=== PATIENT | female | born 1965 | race American Indian/Alaskan Native ===

== ENCOUNTER 2017-05-29 19:58 | Emergency (ER) | payer OTHER ==
[2017-05-29 20:05] VITALS: BP 143/89; PULSE 79; RESP 16; TEMP 97.6; O2SAT 100
--- NOTE | 2017-05-29 21:06 | ED PDOC ---
HPI: CCC, URI, Sore Throat Time Seen by Provider: 05/29/17 20:11 Chief Complaint (Nursing): ENT Problem Chief Complaint (Provider): LEFT ear pain History Per: Patient History/Exam Limitations: no limitations Have you had recent travel within the past 21 days to any of the following countries: [place], [place], [place] or [place]?: No Onset/Duration Of Symptoms: Days Current Symptoms Are (Timing): Still Present Location Of Pain: Ear(s) (left) Sick Contacts (Context): None Ear Symptoms: Left: Ear Pain (3 weeks) Additional History Per: Patient Additional Complaint(s): The patient is a 51yo female, past medical history of hypertension, DM, presents to the ED for evaluation of left ear pain present for the past 3 weeks. Patient states she feels as if there is swelling and decreased hearing in her left ear. Patient states she used an OTC ear wash initially with no relief and then followed up with her PCP Dr. Gilliam at [facility] in [place] who gave her an antibiotics ear drop which provided relief. Patient states she finished her antibiotics course 3 days ago after which her symptoms have returned and are more worse than before. She also reports new nasal and sinus congestion. She denies any fever or drainage. Patient offers no additional medical complaints. Past Medical History Reviewed: Historical Data, Nursing Documentation, Vital Signs Vital Signs: Last Vital Signs Temp 97.6 F 05/29/17 20:02 Pulse 79 05/29/17 20:02 Resp 16 05/29/17 20:02 BP 143/89 05/29/17 20:02 Pulse Ox 100 05/29/17 22:15 - Medical History PMH: Asthma, Diabetes, HTN - Surgical History Surgical History: Tonsillectomy - Family History Family History: States: Hypertension - Social History Current smoker - smoking cessation education provided: Yes (cigars occaisonally) Alcohol: None Drugs: Denies - Home Medications Home Medications: Ambulatory Orders Medication Instructions Recorded Enalapril Maleate [Enalapril] 5 mg PO DAILY #30 tab 09/07/14 GlipiZIDE SR [Glucotrol XL] 5 mg PO DAILY #30 tab 09/07/14 MetFORMIN [glucoPHAGE] 1,000 mg PO BID #60 tab 09/07/14 Naproxen [Naprosyn] 500 mg PO Q12 PRN #20 tab 09/07/14 Pravastatin Sodium [Pravastatin] 20 mg PO DAILY #30 tab 09/07/14 Amoxicillin/Clavulanate [Augmentin 1 tab PO BID #14 tab 05/29/17 875 MG-125 MG] Ciprofloxacin/Hydrocortisone 10 ml OS QID #1 bottle 05/29/17 [Cipro Hc Otic Suspension] Naproxen [Naprosyn] 1 tab PO BID PRN #60 tab 05/29/17 - Allergies Allergies/Adverse Reactions: Allergies Allergy/AdvReac Type Severity Reaction Status Date / Time No Known Allergies Allergy Unverified 09/07/14 11:51 Review of Systems ROS Statement: Except As Marked, All Systems Reviewed And Found Negative ENT: Positive for: Ear Pain (left ear pain, left ear swelling), Other ( decreased hearing left ear) Physical Exam - Reviewed Nursing Documentation Reviewed: Yes Vital Signs Reviewed: Yes - Physical Exam Appears: Positive for: Well, Non-toxic Head Exam: Positive for: ATRAUMATIC, NORMOCEPHALIC Skin: Positive for: Warm, Dry Eye Exam: Positive for: EOMI, PERRL ENT: Positive for: Nasal Congestion, Other (LEFT ear: Moderate edema with redness ear canal, normal appearance of TM, no tragal/mastoid ttp). Negative for: Pharyngeal Erythema, Tonsillar Exudate, Tonsillar Swelling Neck: Positive for: Supple Lymphatic: Negative for: Adenopathy - ECG O2 Sat by Pulse Oximetry: 100 (RA) Pulse Ox Interpretation: Normal Medical Decision Making Medical Decision Making: Time: 2009 Impression: Otitis externa and sinusitis Plan: -- Patient given prescriptions for augmentin, cipro and naprosyn. Patient also informed to follow up with ENT without fail by end of this week. Scribe Attestation: Documented by Aubree Gastelum acting as a scribe for Renetta Trammell MD. Provider Attestation: All medical record entries made by the Scribe were at my direction and personally dictated by me. I have reviewed the chart and agree that the record accurately reflects my personal performance of the history, physical exam, medical decision making, and the department course for this patient. I have also personally directed, reviewed, and agree with the discharge instructions and disposition. Disposition - Clinical Impression Clinical Impression: Otitis externa Counseled Patient/Family Regarding: Studies Performed, Diagnosis, Need For Followup, Rx Given - Disposition Referrals: Davis Matson MD [Staff Provider] - [facility] [Outside] Disposition: Routine/Home Disposition Time: 21:05 Condition: STABLE Additional Instructions: FOLLOW UP WITH THE ENT SPECIALIST BY THE END OF THE WEEK Prescriptions: Amoxicillin/Clavulanate [Augmentin 875 MG-125 MG] 1 tab PO BID #14 tab Ciprofloxacin/Hydrocortisone [Cipro Hc Otic Suspension] 10 ml OS QID #1 bottle Naproxen [Naprosyn] 1 tab PO BID PRN #60 tab PRN Reason: Pain Instructions: Sinusitis (ED), Otitis Externa (ED)
== END 2017-05-29 21:38 | disposition home or self-care (01) ==
LOC: H.ER 19:58
DX: H60.92 Unspecified otitis externa, left ear (principal); E11.9 Type 2 diabetes mellitus without complications; I10 Essential (primary) hypertension

== ENCOUNTER 2018-12-24 13:38 | Emergency (ER) | payer OTHER ==
[2018-12-24 13:56] VITALS: BP 157/82; PULSE 76; RESP 18; TEMP 98.2; O2SAT 99
--- NOTE | 2018-12-24 15:38 | ED PDOC ---
HPI: General Adult Time Seen by Provider: 12/24/18 14:31 Chief Complaint (Nursing): Abnormal Skin Integrity Chief Complaint (Provider): Lump on Breast History Per: Patient History/Exam Limitations: no limitations Onset/Duration Of Symptoms: Days (x 4) Current Symptoms Are (Timing): Still Present Additional Complaint(s): 53 year old female with a history of diabetes and a family history of breast CA presents to the ED for evaluation of a painful, enlarging lump to her breast that she first noticed 3 days ago. Patient is requesting a mammogram at this time. She does not have insurance and was unable to find another facility that would do a mammogram, prompting ED visit. Denies medications [employer], fever, chills, discharge from breast or nipple, recent weight loss, chest pain, SOB/cough, N/V/D. PMD: none provided Past Medical History Reviewed: Historical Data, Nursing Documentation, Vital Signs Vital Signs: Last Vital Signs Temp 98.2 F 12/24/18 13:55 Pulse 76 12/24/18 13:55 Resp 18 12/24/18 13:55 BP 157/82 H 12/24/18 13:55 Pulse Ox 99 12/24/18 13:55 - Medical History PMH: Asthma, Diabetes, HTN - Surgical History Surgical History: Tonsillectomy - Family History Family History: States: Hypertension - Home Medications Home Medications: Ambulatory Orders Medication Instructions Recorded Enalapril Maleate [Enalapril] 5 mg PO DAILY #30 tab 09/07/14 GlipiZIDE SR [Glucotrol XL] 5 mg PO DAILY #30 tab 09/07/14 MetFORMIN [glucoPHAGE] 1,000 mg PO BID #60 tab 09/07/14 Naproxen [Naprosyn] 500 mg PO Q12 PRN #20 tab 09/07/14 Pravastatin Sodium [Pravastatin] 20 mg PO DAILY #30 tab 09/07/14 Amoxicillin/Clavulanate [Augmentin 1 tab PO BID #14 tab 05/29/17 875 MG-125 MG] Ciprofloxacin/Hydrocortisone 10 ml OS QID #1 bottle 05/29/17 [Cipro Hc Otic Suspension] Naproxen [Naprosyn] 1 tab PO BID PRN #60 tab 05/29/17 Acetaminophen [Acetaminophen 8 650 mg PO Q8 PRN #21 tablet.er 12/24/18 Hour] Cephalexin [Keflex] 500 mg PO TID #21 capsule 12/24/18 Naproxen 500 mg PO BID PRN #20 tab 12/24/18 Sulfamethoxazole/Trimethoprim 1 tab PO BID #14 tab 12/24/18 [Bactrim DS 800 mg-160 mg] - Allergies Allergies/Adverse Reactions: Allergies Allergy/AdvReac Type Severity Reaction Status Date / Time shellfish derived Allergy SWELLING Verified 12/24/18 13:55 Review of Systems ROS Statement: Except As Marked, All Systems Reviewed And Found Negative Musculoskeletal: Positive for: Other (painful lump on breast) Physical Exam - Reviewed Nursing Documentation Reviewed: Yes Vital Signs Reviewed: Yes - Physical Exam Comments: GENERAL APPEARANCE: Patient is awake, alert, oriented x 3, in no acute distress. Resting comfortably. SKIN: Warm, dry; (-) cyanosis; (-) rash. ENMT: Airway patent, (-) stridor; mucous membranes are moist. NECK: Supple, FROM (-) tenderness, (-) stiffness, (-) meningismus, (-) lymphadenopathy. CHEST AND RESPIRATORY: (-) rales, (-) rhonchi, (-) wheezes; breath sounds equal bilaterally. Respirations even and nonlabored, speaking in full sentences. HEART AND CARDIOVASCULAR: (-) irregularity ABDOMEN AND GI: Soft; (-) tenderness. NEURO AND PSYCH: Mental status as above (-) facial asymmetry. Gait: steady. Speech: clear. BREAST: (+)palpable 1 cm x 1 cm tender, superficial mass at 9 o'clock position of left breast with faint erythema; (-) ecchymosis, (-) drainage (-) lesions or rashes, (-) nipple discharge, (-) no lymphadenopathy. PEG Sanchez was p resent during the entire exam. Right breast unremarkable. - ECG O2 Sat by Pulse Oximetry: 99 (RA) Pulse Ox Interpretation: Normal Medical Decision Making Medical Decision Makin:45 Impression: breast mass, likely early abscess of breast Initial Plan: --Bactrim DS 1 tab PO --Keflex 500 mg PO --Toradol 30 mg IM --Given patient's age and family history of breast cancer, she was advised to follow up for a mammogram regardless, especially if symptoms persist after antibiotic use. --Re-evaluation 1615 On re-evaluation, patient reports improvement of symptom. On exam, patient remains AAOx3, in no acute distress. Vitals stable. Lab/Diagnostic results d/w the patient in great detail. Diagnosis of breast mass, probable early breast abscess d/w the patient. Based on history, exam and diagnostic results, plan will be for outpatient follow up with OBGYN/PMD/clinic. Patient instructed to follow-up with pmd / referral provided / the clinic in 1- 2 days without fail. Advised to take medication as prescribed. Return to the emergency room at any time for any new or worsening symptoms. Patient states she fully agrees with and understands discharge instructions. States that she agrees with the plan and disposition. Verbalized and repeated discharge instructions and plan. I have given the patient opportunity to ask any additional questions. Scribe Attestation: Documented by Maricel Bullard acting as a scribe for Brittani Faulkner PA-C Scribe Attestation: All medical record entries made by the Scribe were at my direction and personally dictated by me. I have reviewed the chart and agree that the record accurately reflects my personal performance of the history, physical exam, medical decision making, and the department course for this patient. I have also personally directed, reviewed, and agree with the discharge instructions and disposition. Disposition - Clinical Impression Clinical Impression: Abscess of breast, Breast mass - Patient ED Disposition Is Patient to be Admitted: No Counseled Patient/Family Regarding: Studies Performed, Diagnosis, Need For Followup, Rx Given - Disposition Referrals: [facility] [Outside] [facility]] Disposition: Routine/Home Disposition Time: 15:45 Condition: STABLE Additional Instructions: The emergency medical care you received today was directed at your acute symptoms. If you were prescribed any medication, please fill it and take as directed. It may take several days for your symptoms to resolve. Return to the Emergency Department if your symptoms worsen, do not improve, or if you have any other problems. Please contact your doctor in 2 days for re-evaluation and follow up / or call one of the physicians/clinics you have been referred to that are listed on the Patient Visit Information form that is included in your discharge packet. Bring any paperwork you were given at discharge with you along with any medications you are taking to your follow up visit. Our treatment cannot replace ongoing medical care by a primary care provider (PCP) outside of the emergency department. Prescriptions: Acetaminophen [Acetaminophen 8 Hour] 650 mg PO Q8 PRN #21 tablet.er PRN Reason: Pain, Moderate (4-7) Cephalexin [Keflex] 500 mg PO TID #21 capsule Naproxen 500 mg PO BID PRN #20 tab PRN Reason: Pain, Moderate (4-7) Sulfamethoxazole/Trimethoprim [Bactrim DS 800 mg-160 mg] 1 tab PO BID #14 tab Instructions: Skin Abscess, Common Breast Problems Forms: [employer] (Kiswahili) Print Language: LATVIAN - POA Present On Arrival: None
[2018-12-24] MEDS ORDERED: Tmp-Smz 800 mg-160 mg DS Tab PO STA (15:43)
[2018-12-24] MEDS ORDERED: Tmp-Smz 800 mg-160 mg DS Tab ONE (16:08)
== END 2018-12-24 16:51 | disposition home or self-care (01) ==
LOC: H.ER 13:38
DX: N61.1 Abscess of the breast and nipple (principal); E11.9 Type 2 diabetes mellitus without complications; I10 Essential (primary) hypertension; J45.909 Unspecified asthma, uncomplicated; N63.0 Unspecified lump in unspecified breast; Z79.84 Long term (current) use of oral hypoglycemic drugs; Z80.3 Family history of malignant neoplasm of breast
CPT/HCPCS: 96372; 99282; J1885